=== PATIENT | male | born 2000 | race Two or more races ===

== ENCOUNTER 2022-09-18 18:39 | Emergency (ER) | payer MEDICAID ==
[~2022-09-18] VITALS: Ht 170.2 cm; Wt 65.8 kg
[2022-09-18] MEDS ORDERED: ONDANSETRON ODT 4 MG TAB.RAPDIS SL ONE (18:45)
[2022-09-18] MEDS ORDERED: HYDROMORPHONE 1 MG/1 ML DISP.SYRIN IM ONE (18:45)
[2022-09-18] MEDS ORDERED: ONDANSETRON ODT 4 MG TAB.RAPDIS ONE (18:47)
[2022-09-18] MEDS ORDERED: HYDROMORPHONE 1 MG/1 ML DISP.SYRIN ONE (18:48)
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
--- NOTE | 2022-09-18 19:27 | NUR ---
Report given to Elizabeth PARKER
[2022-09-18] MEDS ORDERED: HYDR-4209 PO (20:01)
--- NOTE | 2022-09-18 21:00 | NUR ---
Patient discharged to home in stable condition WITH TAKING PATIENT HOME. Written and verbal after care instructions given. Patient verbalizes understanding of instructions. Stressed follow up or return to ER for worsening s/s.
[2022-09-19 00:32] VITALS: BP 145/88
== END 2022-09-18 21:00 | disposition home or self-care (01) ==
LOC: ER 18:42
DX: S83.91XA Sprain of unspecified site of right knee, initial encounter (principal); S13.4XXA Sprain of ligaments of cervical spine, initial encounter; S80.01XA Contusion of right knee, initial encounter; S70.01XA Contusion of right hip, initial encounter; V13.4XXA Pedal cycle driver injured in collision with car, pick-up truck or van in traffic accident, initial encounter; Y93.55 Activity, bike riding; Y92.414 Local residential or business street as the place of occurrence of the external cause
CPT/HCPCS: 99284; 29505; 72125; 72170; 73502; 73562; 96372; J1170; A4663; Q0162